=== PATIENT | male | born 1940 | race Caucasian/White ===

== ENCOUNTER 2019-05-24 20:19 | Emergency (ER) | payer OTHER ==
[~2019-05-24] VITALS: Ht 177.8 cm; Wt 99.8 kg
[~2019-05-24 20:19] MED LIST: ALPR1; ASPI81CH; ASPI81CH PO; CEPH500 PO; CIPR500 PO; DICYCLOMINE; FURO40; HYDACE10B PO; HYDACE5 PO; HYDCHL12.5 PO; HYOS.125 SL; METR500 PO; NAPR500 PO; OXYACE5T PO; RXOXYACE PO; UNK BP MED; ZOLP10 PO; [UNRECOGNIZED DRUG - OTHER] PO; [UNRECOGNIZED DRUG - REMARK] PO
[2019-05-24 21:35] LABS: Alanine Aminotransfer (ALT/SGP 27 U/L (12-78); Albumin, Blood 4.2 g/dL (3.4-5.0); Alk Phos 103 U/L (50-136); Anion Gap 13 mmol/L (6-16); Aspartate Aminotrans (AST/SGOT 25 U/L (12-37); Bilirubin, Total 0.7 mg/dL (0.1-1.0); Blood Urea Nitrogen 26 mg/dL (8-24); Bun/Creatinine Ratio 20.8 (12.0-20.0); CO2, Blood 21 mmol/L (21-32); Calcium, Blood 10.2 mg/dL (8.5-10.1); Chloride, Blood 105 mmol/L (98-108); Creatinine, Blood 1.25 mg/dL (0.60-1.20); Globulin, Blood 4.1 g/dL (2.2-4.0); Glomerular Filtration Rate 59 (60-); Glucose, Blood 97 mg/dL (70-99); Potassium, Blood 3.7 mmol/L (3.5-5.5); Sodium, Blood 139 mmol/L (136-145); Total Protein, Blood 8.3 g/dL (6.4-8.2); Troponin I <0.015 ng/mL (0.000-0.040)
[2019-05-24] MEDS ORDERED: AMLO10 (22:23)
[2019-05-24] MEDS ORDERED: ZOLP10 (22:24)
[2019-05-24 22:34] LABS: BASOPHILS ABSOLUTE AUTO 0.04 K/mm3 (0.00-0.23); BASOPHILS PERCENT AUTO 1 % (0-2); EOSINOPHILS ABSOLUTE AUTO 0.09 K/mm3 (0.00-0.68); EOSINOPHILS PERCENT AUTO 1 % (0-6); Hematocrit 46.6 % (37.0-53.0); Hemoglobin 16.2 g/dL (13.5-17.5); IMMATURE GRAN ABSOLUTE AUTO 0.02 K/mm3 (0.00-0.10); IMMATURE GRAN PERCENT AUTO 0 % (0-1); LYMPHOCYTES ABSOLUTE AUTO 2.21 K/mm3 (0.84-5.20); LYMPHOCYTES PERCENT AUTO 26 % (21-46); MONOCYTES ABSOLUTE AUTO 0.85 K/mm3 (0.16-1.47); MONOCYTES PERCENT AUTO 10 % (4-13); Mean Corpuscular HGB 29.7 pg (26.0-34.0); Mean Corpuscular HGB Conc 34.8 g/dL (31.5-36.5); Mean Corpuscular Volume 85 fL (80-100); Mean Platelet Volume 9.4 fL (9.1-12.4); NEUTROPHILS ABSOLUTE AUTO 5.21 K/mm3 (1.96-9.15); NEUTROPHILS PERCENT AUTO 62 % (41-73); Platelet Count 240 K/mm3 (150-400); RDW Coefficient Variation 13.2 % (11.7-14.2); RDW Standard Deviation 40.9 fL (35.1-46.3); Red Blood Cell Count 5.46 M/mm3 (4.30-5.90); White Blood Cell Count 8.42 K/mm3 (4.00-11.30)
[2019-05-25] MEDS ORDERED: Pepcid20 MG PO (00:42)
== END 2019-05-25 01:10 | disposition home or self-care (01) ==
LOC: ER 20:19
PROVIDERS: Emergency Medicine
DX: K29.70 Gastritis, unspecified, without bleeding (principal); K21.9 Gastro-esophageal reflux disease without esophagitis; I10 Essential (primary) hypertension; Z79.899 Other long term (current) drug therapy; Z79.82 Long term (current) use of aspirin
CPT/HCPCS: 36415; 71046; 80053; 84484; 85025; 93005; 93010; 96361; 96374; 99285-25; J7030

== ENCOUNTER 2022-04-15 02:25 | Emergency (ER) | payer OTHER ==
[~2022-04-15] VITALS: Ht 175.3 cm; Wt 99.8 kg
[~2022-04-15 02:25] MED LIST changes: +AMLO10; +Pepcid20 MG PO; +ZOLP10
== END 2022-04-15 04:56 | disposition home or self-care (01) ==
LOC: ER 02:25
DX: K08.89 Other specified disorders of teeth and supporting structures (principal); I10 Essential (primary) hypertension; Z79.82 Long term (current) use of aspirin; Z79.899 Other long term (current) drug therapy
CPT/HCPCS: 64400; 99282-25

== ENCOUNTER 2022-07-16 21:38 | Emergency (ER) | payer OTHER ==
[~2022-07-16] VITALS: Ht 182.9 cm; Wt 113.4 kg
[2022-07-16] MEDS ORDERED: LEVSOD88 (23:47)
[2022-07-16] MEDS ORDERED: Colace100 MG (23:48)
[2022-07-17] MEDS ORDERED: ONDA4ODT MM (02:38)
== END 2022-07-16 22:20 | disposition left against medical advice (07) ==
LOC: ER 21:38
DX: R11.2 Nausea with vomiting, unspecified (principal); R19.7 Diarrhea, unspecified; M54.9 Dorsalgia, unspecified; M25.511 Pain in right shoulder; Z53.21 Procedure and treatment not carried out due to patient leaving prior to being seen by health care provider
CPT/HCPCS: 99281

== ENCOUNTER 2022-07-16 23:35 | Emergency (ER) | payer OTHER ==
[~2022-07-16] VITALS: Ht 182.9 cm; Wt 99.8 kg
[2022-07-16] MEDS ORDERED: LEVSOD88 (23:47)
[2022-07-16] MEDS ORDERED: Colace100 MG (23:48)
[2022-07-17 00:04] LABS: BASOPHILS ABSOLUTE AUTO 0.03 K/mm3 (0.00-0.23); BASOPHILS PERCENT AUTO 0 % (0-2); EOSINOPHILS ABSOLUTE AUTO 0.03 K/mm3 (0.00-0.68); EOSINOPHILS PERCENT AUTO 0 % (0-6); Hematocrit 46.7 % (37.0-53.0); Hemoglobin 16.2 g/dL (13.5-17.5); IMMATURE GRAN ABSOLUTE AUTO 0.04 K/mm3 (0.00-0.10); IMMATURE GRAN PERCENT AUTO 0 % (0-1); LYMPHOCYTES ABSOLUTE AUTO 0.68 K/mm3 (0.84-5.20); LYMPHOCYTES PERCENT AUTO 6 % (21-46); MONOCYTES ABSOLUTE AUTO 0.78 K/mm3 (0.16-1.47); MONOCYTES PERCENT AUTO 7 % (4-13); Mean Corpuscular HGB 29.8 pg (26.0-34.0); Mean Corpuscular HGB Conc 34.7 g/dL (31.5-36.5); Mean Corpuscular Volume 86 fL (80-100); NEUTROPHILS PERCENT AUTO 87 % (41-73); Platelet Count 189 K/mm3 (150-400); RDW Coefficient Variation 15.2 % (11.7-14.2); RDW Standard Deviation 46.5 fL (35.1-46.3); Red Blood Cell Count 5.44 M/mm3 (4.30-5.90); White Blood Cell Count 11.66 K/mm3 (4.00-11.30)
[2022-07-17 00:25] LABS: Albumin, Blood 3.7 g/dL (3.4-5.0); Albumin/Globulin Ratio 0.9 (0.8-1.8); Bilirubin, Total 0.7 mg/dL (0.1-1.0); Bun/Creatinine Ratio 23.9 (12.0-20.0); Calcium, Blood 8.5 mg/dL (8.5-10.1); Creatinine, Blood 1.38 mg/dL (0.60-1.20); Potassium, Blood 4.1 mmol/L (3.5-5.5); Total Protein, Blood 7.7 g/dL (6.4-8.2)
[2022-07-17 00:59] LABS: Influenza A, PCR NEGATIVE (NEGATIVE); Influenza B, PCR NEGATIVE (NEGATIVE); Resp Syncytial Virus, PCR NEGATIVE (NEGATIVE); SARS-Cov-2 (COVID-19) PCR, MMC NEGATIVE (NEGATIVE)
[2022-07-17 02:08] LABS: Source, Urine Voided
[2022-07-17 02:13] LABS: Bilirubin, Urine Neg (Neg); Blood, Urine 2+ (Neg); Glucose Qualitative, Urine Neg (Neg); Ketones, Urine Neg (Neg); Leukocyte Esterase, Urine Neg (Neg); Nitrite, Urine Neg (Neg); Protein, Urine 3+ (Neg); Specific Gravity, Urine 1.025 (1.003-1.022); Urobilinogen, Urine NORM (Normal)
[2022-07-17 02:29] LABS: Appearance, Urine Hazy (Clear); Color, Urine Yellow (P-Yellow)
[2022-07-17 02:31] LABS: Bacteria Few /hpf; Mucus Light (0-Heavy); Squamous Epithelial Cells Mod /hpf (Few); White Blood Cells, Urine 0-2 /hpf (0-5)
[2022-07-17] MEDS ORDERED: ONDA4ODT MM (02:38)
== END 2022-07-17 03:07 | disposition home or self-care (01) ==
LOC: ER 23:35
PROVIDERS: Emergency Medicine
DX: R11.2 Nausea with vomiting, unspecified (principal); R19.7 Diarrhea, unspecified; R19.5 Other fecal abnormalities; R14.0 Abdominal distension (gaseous); Z79.899 Other long term (current) drug therapy; Z79.82 Long term (current) use of aspirin; I10 Essential (primary) hypertension; E03.9 Hypothyroidism, unspecified
CPT/HCPCS: 0241U; 36415; 51798; 80053; 81001; 83690; 84484; 85025; 93005; 93010; 96374; 96375; 99284-25; A9270; J1885; J2405; J2550

== ENCOUNTER 2022-07-24 18:02 | Emergency (ER) | payer OTHER ==
[~2022-07-24] VITALS: Ht 177.8 cm; Wt 99.8 kg
[~2022-07-24 18:02] MED LIST changes: +Colace100 MG; +LEVSOD88; +ONDA4ODT MM
[2022-07-24 20:07] LABS: BASOPHILS ABSOLUTE AUTO 0.03 K/mm3 (0.00-0.23); BASOPHILS PERCENT AUTO 0 % (0-2); EOSINOPHILS ABSOLUTE AUTO 0.09 K/mm3 (0.00-0.68); EOSINOPHILS PERCENT AUTO 1 % (0-6); Hemoglobin 13.4 g/dL (13.5-17.5); IMMATURE GRAN ABSOLUTE AUTO 0.02 K/mm3 (0.00-0.10); IMMATURE GRAN PERCENT AUTO 0 % (0-1); LYMPHOCYTES ABSOLUTE AUTO 1.67 K/mm3 (0.84-5.20); LYMPHOCYTES PERCENT AUTO 15 % (21-46); MONOCYTES ABSOLUTE AUTO 0.89 K/mm3 (0.16-1.47); MONOCYTES PERCENT AUTO 8 % (4-13); Mean Corpuscular HGB 29.1 pg (26.0-34.0); Mean Corpuscular HGB Conc 34.4 g/dL (31.5-36.5); Mean Corpuscular Volume 85 fL (80-100); Mean Platelet Volume 9.2 fL (9.1-12.4); NEUTROPHILS PERCENT AUTO 76 % (41-73); Platelet Count 260 K/mm3 (150-400); RDW Coefficient Variation 14.2 % (11.7-14.2)
[2022-07-24 20:30] LABS: Albumin, Blood 3.3 g/dL (3.4-5.0); Albumin/Globulin Ratio 0.8 (0.8-1.8); Bilirubin, Total 0.4 mg/dL (0.1-1.0); Bun/Creatinine Ratio 16.4 (12.0-20.0); Calcium, Blood 8.4 mg/dL (8.5-10.1); Creatinine, Blood 1.16 mg/dL (0.60-1.20); Globulin, Blood 4.1 g/dL (2.2-4.0); Potassium, Blood 3.6 mmol/L (3.5-5.5); Total Protein, Blood 7.4 g/dL (6.4-8.2)
[2022-07-24 20:47] LABS: Source, Urine Clean Catch
[2022-07-24 20:55] LABS: Bilirubin, Urine Neg (Neg); Blood, Urine 2+ (Neg); Glucose Qualitative, Urine Neg (Neg); Ketones, Urine Neg (Neg); Leukocyte Esterase, Urine Neg (Neg); Nitrite, Urine Neg (Neg); Protein, Urine 2+ (Neg); Urobilinogen, Urine NORM (Normal)
[2022-07-24 21:39] LABS: Appearance, Urine Clear (Clear); Color, Urine Pale Yellow (P-Yellow)
[2022-07-24 21:40] LABS: Bacteria Few /hpf; Squamous Epithelial Cells Rare /hpf (Few); White Blood Cells, Urine 0-2 /hpf (0-5)
[2022-07-24] MEDS ORDERED: AMOCLA875 PO (22:04)
[2022-07-24] MEDS ORDERED: ONDA4ODT MM (22:04)
[2022-07-24] MEDS ORDERED: HYDR1TAB94 PO (22:04)
== END 2022-07-24 23:15 | disposition home or self-care (01) ==
LOC: ER 18:02
PROVIDERS: Emergency Medicine
DX: K57.32 Diverticulitis of large intestine without perforation or abscess without bleeding (principal); I10 Essential (primary) hypertension; E03.9 Hypothyroidism, unspecified; Z79.899 Other long term (current) drug therapy; Z79.82 Long term (current) use of aspirin
CPT/HCPCS: 74177; 80053; 81001; 85025; 96365-59; 96375; 99285-25; A9270; J1610; J1885; J2543; J7799; Q9967

== ENCOUNTER 2022-07-30 07:31 | Observation (INO) | payer OTHER ==
[~2022-07-30] VITALS: Ht 175.3 cm; Wt 99.5 kg
[~2022-07-30 07:31] MED LIST changes: -AMLO10; +AMLO10 PO; +AMOCLA875 PO; -ASPI81CH; -Colace100 MG; +Colace100 MG PO; +HYDR1TAB94 PO; -LEVSOD88; +LEVSOD88 PO; -ZOLP10
[2022-07-30 07:57] LABS: BASOPHILS ABSOLUTE AUTO 0.03 K/mm3 (0.00-0.23); BASOPHILS PERCENT AUTO 0 % (0-2); EOSINOPHILS ABSOLUTE AUTO 0.09 K/mm3 (0.00-0.68); EOSINOPHILS PERCENT AUTO 1 % (0-6); IMMATURE GRAN ABSOLUTE AUTO 0.05 K/mm3 (0.00-0.10); IMMATURE GRAN PERCENT AUTO 1 % (0-1); LYMPHOCYTES PERCENT AUTO 12 % (21-46); MONOCYTES ABSOLUTE AUTO 0.76 K/mm3 (0.16-1.47); MONOCYTES PERCENT AUTO 7 % (4-13); Mean Corpuscular HGB Conc 34.1 g/dL (31.5-36.5); Mean Corpuscular Volume 85 fL (80-100); Mean Platelet Volume 9.3 fL (9.1-12.4); NEUTROPHILS ABSOLUTE AUTO 8.36 K/mm3 (1.96-9.15); NEUTROPHILS PERCENT AUTO 79 % (41-73); Platelet Count 268 K/mm3 (150-400); RDW Coefficient Variation 14.5 % (11.7-14.2); RDW Standard Deviation 43.8 fL (35.1-46.3); Red Blood Cell Count 4.83 M/mm3 (4.30-5.90); White Blood Cell Count 10.59 K/mm3 (4.00-11.30)
[2022-07-30 08:12] LABS: Albumin, Blood 3.5 g/dL (3.4-5.0); Albumin/Globulin Ratio 0.9 (0.8-1.8); Bilirubin, Total 0.4 mg/dL (0.1-1.0); Bun/Creatinine Ratio 13.8 (12.0-20.0); Calcium, Blood 8.9 mg/dL (8.5-10.1); Creatinine, Blood 1.23 mg/dL (0.60-1.20); Globulin, Blood 4.1 g/dL (2.2-4.0); Potassium, Blood 3.7 mmol/L (3.5-5.5); Total Protein, Blood 7.6 g/dL (6.4-8.2)
[2022-07-30] MEDS ORDERED: VALS80 PO (12:53)
--- NOTE | 2022-07-30 13:06 | NUR ---
PT ARRIVED TO THE MEDICAL FLOOR VIA WHEELCHAIR. PT IS A/OX4, PLEAsant and cooperative. the pt reported some mildly c/p when lying flat in bed that resolved when he levated his head. pt was oriented to the call system and room layout. call light in reach.
--- NOTE | 2022-07-30 17:09 | NUR ---
PT IS A/OX4, PLEASANT AND COOPERATIVE. THE PT IS UP IND IN HIS ROOM. THE PT REPORTS PAIN WITH DEEP BREATHS PT MEDICATED FOR PAIN X1 SO FAR THIS SHIFT. PT OTHERWISE APPEARS TO BE BREATHING EASILY ON RA. THE TELE APPLIED, CALL LIGHT IN REACH. WILL CONTINUE TO MONITOR AND ASSESS FOR CHANGES
--- NOTE | 2022-07-31 06:13 | NUR ---
PT CONTINUES TO HAVE CHEST PAIN, MORPHINE IS HELPING. CALLS FOR NEEDS. GOOD URINE OUTPUT
[2022-07-31] MEDS ORDERED: AMOCLA875 PO (09:36)
[2022-07-31] MEDS ORDERED: PRED20 PO (09:40)
[2022-07-31] MEDS ORDERED: VISBIOME 112.51 EACH PO (09:41)
--- NOTE | 2022-07-31 14:12 | NUR ---
PT DISCHARGED THE PT VERBALIZED UNDERSTANDING OF THE DC INSTRUCTIONS. THE PTS PRESCRIPTIONS WERE FAXED TO THE [facility] REQUESTED. THE PT AMBULATED OUT WITH FAMILY AND FRIENDS STEDY ON HIS FEET.
== END 2022-07-31 10:25 | disposition home or self-care (01) ==
LOC: ER 07:31 → MEDS 07:32
PROVIDERS: Emergency Medicine; ADMIT Internal Medicine
DX: R07.89 Other chest pain (principal); I10 Essential (primary) hypertension; K57.92 Diverticulitis of intestine, part unspecified, without perforation or abscess without bleeding; E03.9 Hypothyroidism, unspecified; C67.9 Malignant neoplasm of bladder, unspecified; I25.10 Atherosclerotic heart disease of native coronary artery without angina pectoris
CPT/HCPCS: 36415; 71045; 71275; 80053; 84484; 85025; 85651; 86140; 93005; 93010; 96374-59; 96375; 96375-59; 96376; 99285-25; A9270; G0378; J1885; J2270; J3010; J7030; J7040; J7512; Q9967

== ENCOUNTER 2024-06-11 13:10 | Emergency (ER) | payer OTHER ==
[~2024-06-11] VITALS: Ht 175.3 cm; Wt 99.8 kg
[~2024-06-11 13:10] MED LIST changes: +PRED20 PO; +VALS80 PO; +VISBIOME 112.51 EACH PO
[2024-06-11] MEDS ORDERED: Ondansetron HCl 2 MG / ML 2ML Vial IV ONE (14:00)
[2024-06-11 14:22] LABS: BASOPHILS ABSOLUTE AUTO 0.04 K/mm3 (0.00-0.23); BASOPHILS PERCENT AUTO 0 % (0-2); EOSINOPHILS ABSOLUTE AUTO 0.02 K/mm3 (0.00-0.68); EOSINOPHILS PERCENT AUTO 0 % (0-6); Hematocrit 48.3 % (37.0-53.0); Hemoglobin 16.6 g/dL (13.5-17.5); IMMATURE GRAN ABSOLUTE AUTO 0.04 K/mm3 (0.00-0.10); IMMATURE GRAN PERCENT AUTO 0 % (0-1); LYMPHOCYTES ABSOLUTE AUTO 0.54 K/mm3 (0.84-5.20); LYMPHOCYTES PERCENT AUTO 5 % (21-46); MONOCYTES ABSOLUTE AUTO 0.51 K/mm3 (0.16-1.47); MONOCYTES PERCENT AUTO 4 % (4-13); Mean Corpuscular HGB 29.7 pg (26.0-34.0); Mean Corpuscular HGB Conc 34.4 g/dL (31.5-36.5); Mean Corpuscular Volume 87 fL (80-100); Mean Platelet Volume 9.7 fL (9.1-12.4); NEUTROPHILS ABSOLUTE AUTO 10.58 K/mm3 (1.96-9.15); NEUTROPHILS PERCENT AUTO 90 % (41-73); Platelet Count 248 K/mm3 (150-400); RDW Coefficient Variation 14.3 % (11.7-14.2); RDW Standard Deviation 44.5 fL (35.1-46.3); Red Blood Cell Count 5.58 M/mm3 (4.30-5.90); White Blood Cell Count 11.73 K/mm3 (4.00-11.30)
[2024-06-11 14:31] LABS: Albumin/Globulin Ratio 0.9 (0.8-1.8); Bilirubin, Total 0.7 mg/dL (0.1-1.0); Bun/Creatinine Ratio 23.9 (12.0-20.0); Calcium, Blood 9.1 mg/dL (8.5-10.1); Creatinine, Blood 1.34 mg/dL (0.60-1.20); Globulin, Blood 4.6 g/dL (2.2-4.0); Potassium, Blood 4.4 mmol/L (3.5-5.5); Total Protein, Blood 8.6 g/dL (6.4-8.2)
[2024-06-11] MEDS ORDERED: NS 1,000 ML IV SCH (14:35)
[2024-06-11] MEDS ORDERED: ONDA4ODT MM (16:23)
[2024-06-11] MEDS ORDERED: RX Prepack 2 Tabs Ondansetron ODT 4MG UD ONE (16:30)
[2024-06-11 16:32] VITALS: BP 142/82
== END 2024-06-11 16:49 | disposition home or self-care (01) ==
LOC: ER 13:10
PROVIDERS: Student in an Organized Health Care Education/Training Program
DX: R11.2 Nausea with vomiting, unspecified (principal); R19.7 Diarrhea, unspecified; E03.9 Hypothyroidism, unspecified; I10 Essential (primary) hypertension; Z79.52 Long term (current) use of systemic steroids; Z79.82 Long term (current) use of aspirin; Z79.899 Other long term (current) drug therapy
CPT/HCPCS: 80053; 83735; 84484; 85025; 93005; 93010; 96361; 96374; 99284-25; A9270; J2405; J7030